=== PATIENT | female | born 1985 | race Caucasian/White ===

== ENCOUNTER 2017-10-08 09:44 | Emergency (ER) | payer OTHER ==
[~2017-10-08] VITALS: Ht 165.1 cm; Wt 113.0 kg
[~2017-10-08 09:44] MED LIST: DULO1CAP3 PO; HYDR-755; LYRI225C PO; PRED10; QUET1TAB7 PO; VENTAER
[2017-10-08 09:46] VITALS: BP 148/90; PULSE 108; RESP 17; TEMP 97.8; O2SAT 98
--- NOTE | 2017-10-08 10:24 | PD ---
HPI Chief Complaint: OD/ Ingestion Time Seen by Provider: 10:04 Travel History International Travel<30 days: No Contact w/Intl Traveler<30days: No Traveled to known affect area: No History of Present Illness HPI 32-year-old female presents to emergency department concerned about withdrawal from alcohol, IV heroin use and cocaine. Patient states that she last used IV heroin yesterday and has been feeling "horrible" ever since. Patient is from [place], [place] and is here in [facility] to try to get clean. Patient says she has had hot and cold flashes, pain all over her body. Patient denies hallucinations, suicidal or homicidal ideations. States that she has a history of interstitial lung disease and usually takes oral and inhaled steroids. Patient also has a history of neuropathy and has taken Lyrica for the last 2 years. Patient has been off her medications for approximately 10-15 days. Patient has had periods of being clean and states she would like help to stay clean. She denies any other medical issues or chronic medication use. [facility] Past Medical History ?: Not LMP: 09/14/17 Social History Tobacco Use: Yes Allergies-Medications (Allergen,Severity, Reaction): Coded Allergies: No Known Allergies (Unverified , 10/08/17) Review of Systems Except as stated in HPI: all other systems reviewed are Neg Physical Exam Narrative GENERAL: Well-developed well-nourished, anxious SKIN: Focused skin assessment warm/dry. HEAD: Atraumatic. Normocephalic. EYES: Pupils equal and round. No scleral icterus. No injection or drainage. ENT: No nasal bleeding or discharge. Mucous membranes pink and moist. NECK: Trachea midline. No JVD. No lymphadenopathy CARDIOVASCULAR: Regular rate and rhythm. No murmur appreciated. RESPIRATORY: Diffuse wheezing, no obvious shortness of breath or accessory muscle use GASTROINTESTINAL: Abdomen soft, non-tender, nondistended. Hepatic and splenic margins not palpable. MUSCULOSKELETAL: No obvious deformities. No clubbing. No cyanosis. No edema. NEUROLOGICAL: Awake and alert. No obvious cranial nerve deficits. Motor grossly within normal limits. Normal speech. PSYCHIATRIC: Appropriate mood and affect; insight and judgment normal. Anxious Data Data Last Documented VS Vital Signs Date Time Temp Pulse Resp B/P (MAP) Pulse Ox O2 Delivery O2 Flow Rate FiO2 10/08/17 15:26 77 18 142/75 (97) 100 10/08/17 12:45 Room Air 10/08/17 09:46 97.8 Orders Orders Chest, Single Ap (10/08/17 ) Complete Blood Count With Diff (10/08/17 10:18) Comprehensive Metabolic Panel (10/08/17 10:18) Urinalysis - C+S If Indicated (10/08/17 10:18) Psych Screen (10/08/17 10:18) Drug Screen, Random Urine (10/08/17 10:18) Midazolam Inj (Versed Inj) (10/08/17 10:30) Sodium Chlor 0.9% 1000 Ml Inj (Ns 1000 M (10/08/17 11:00) Albuterol-Ipratropium Neb (Duoneb Neb) (10/08/17 11:15) Prednisone (Deltasone) (10/08/17 11:15) Ibuprofen (Motrin) (10/08/17 12:45) Labs Laboratory Tests Test 10/08/17 10:20 10/08/17 10:35 White Blood Count 11.2 TH/MM3 Red Blood Count 5.48 MIL/MM3 Hemoglobin 16.9 GM/DL Hematocrit 49.3 % Mean Corpuscular Volume 90.1 FL Mean Corpuscular Hemoglobin 30.8 PG Mean Corpuscular Hemoglobin Concent 34.2 % Red Cell Distribution Width 16.2 % Platelet Count 238 TH/MM3 Mean Platelet Volume 8.6 FL Neutrophils (%) (Auto) 70.6 % Lymphocytes (%) (Auto) 21.6 % Monocytes (%) (Auto) 5.9 % Eosinophils (%) (Auto) 1.4 % Basophils (%) (Auto) 0.5 % Neutrophils # (Auto) 7.9 TH/MM3 Lymphocytes # (Auto) 2.4 TH/MM3 Monocytes # (Auto) 0.7 TH/MM3 Eosinophils # (Auto) 0.2 TH/MM3 Basophils # (Auto) 0.1 TH/MM3 CBC Comment DIFF FINAL Differential Comment Blood Urea Nitrogen 8 MG/DL Creatinine 0.61 MG/DL Random Glucose 108 MG/DL Total Protein 7.7 GM/DL Albumin 3.8 GM/DL Calcium Level 9.5 MG/DL Alkaline Phosphatase 123 U/L Aspartate Amino Transf (AST/SGOT) 6 U/L Alanine Aminotransferase (ALT/SGPT) 30 U/L Total Bilirubin 0.7 MG/DL Sodium Level 141 MEQ/L Potassium Level 4.0 MEQ/L Chloride Level 105 MEQ/L Carbon Dioxide Level 29.5 MEQ/L Anion Gap 7 MEQ/L Estimat Glomerular Filtration Rate 114 ML/MIN Urine Color YELLOW Urine Turbidity HAZY Urine pH 6.5 Urine Specific [place] 1.020 Urine Protein TRACE mg/dL Urine Glucose (UA) NEG mg/dL Urine Ketones NEG mg/dL Urine Occult Blood TRACE Urine Nitrite NEG Urine Bilirubin NEG Urine Urobilinogen 2.0 MG/DL Urine Leukocyte Esterase SMALL Urine RBC 6 /hpf Urine WBC 1 /hpf Urine Squamous Epithelial Cells 51 /hpf Urine Bacteria OCC /hpf Urine Hyaline Casts 2 /lpf Urine Mucus FEW /lpf Microscopic Urinalysis Comment CULT NOT INDICATED Urine Opiates Screen NEG Urine Barbiturates Screen NEG Urine Amphetamines Screen NEG Urine Benzodiazepines Screen NEG Urine Cocaine Screen POS Urine Cannabinoids Screen NEG MDM Medical Decision Making Medical Screen Exam Complete: Yes Emergency Medical Condition: Yes Differential Diagnosis polysubstance use, substance abuse, overdose, depression, anxiety Narrative Course 32-year-old female presents to emergency department concerned about withdrawal from alcohol, IV heroin use and cocaine. Patient states that she last used IV heroin yesterday and has been feeling "horrible" ever since. Patient is from [place], [place] and is here in [facility] to try to get clean. Patient says she has had hot and cold flashes, pain all over her body. Patient denies hallucinations, suicidal or homicidal ideations. States that she has a history of interstitial lung disease and usually takes oral and inhaled steroids. Patient also has a history of neuropathy and has taken Lyrica for the last 2 years. Patient has been off her medications for approximately 10-15 days. Patient has had periods of being clean and states she would like help to stay clean. Vital signs- slight tachycardia associated with anxiety with the patient. Physical exam- anxious appearing female, unkempt. Laboratory Tests Test 10/08/17 10:20 10/08/17 10:35 White Blood Count 11.2 TH/MM3 Red Blood Count 5.48 MIL/MM3 Hemoglobin 16.9 GM/DL Hematocrit 49.3 % Mean Corpuscular Volume 90.1 FL Mean Corpuscular Hemoglobin 30.8 PG Mean Corpuscular Hemoglobin Concent 34.2 % Red Cell Distribution Width 16.2 % Platelet Count 238 TH/MM3 Mean Platelet Volume 8.6 FL Neutrophils (%) (Auto) 70.6 % Lymphocytes (%) (Auto) 21.6 % Monocytes (%) (Auto) 5.9 % Eosinophils (%) (Auto) 1.4 % Basophils (%) (Auto) 0.5 % Neutrophils # (Auto) 7.9 TH/MM3 Lymphocytes # (Auto) 2.4 TH/MM3 Monocytes # (Auto) 0.7 TH/MM3 Eosinophils # (Auto) 0.2 TH/MM3 Basophils # (Auto) 0.1 TH/MM3 CBC Comment DIFF FINAL Differential Comment Blood Urea Nitrogen 8 MG/DL Creatinine 0.61 MG/DL Random Glucose 108 MG/DL Total Protein 7.7 GM/DL Albumin 3.8 GM/DL Calcium Level 9.5 MG/DL Alkaline Phosphatase 123 U/L Aspartate Amino Transf (AST/SGOT) 6 U/L Alanine Aminotransferase (ALT/SGPT) 30 U/L Total Bilirubin 0.7 MG/DL Sodium Level 141 MEQ/L Potassium Level 4.0 MEQ/L Chloride Level 105 MEQ/L Carbon Dioxide Level 29.5 MEQ/L Anion Gap 7 MEQ/L Estimat Glomerular Filtration Rate 114 ML/MIN Urine Color YELLOW Urine Turbidity HAZY Urine pH 6.5 Urine Specific [place] 1.020 Urine Protein TRACE mg/dL Urine Glucose (UA) NEG mg/dL Urine Ketones NEG mg/dL Urine Occult Blood TRACE Urine Nitrite NEG Urine Bilirubin NEG Urine Urobilinogen 2.0 MG/DL Urine Leukocyte Esterase SMALL Urine RBC 6 /hpf Urine WBC 1 /hpf Urine Squamous Epithelial Cells 51 /hpf Urine Bacteria OCC /hpf Urine Hyaline Casts 2 /lpf Urine Mucus FEW /lpf Microscopic Urinalysis Comment CULT NOT INDICATED Urine Opiates Screen NEG Urine Barbiturates Screen NEG Urine Amphetamines Screen NEG Urine Benzodiazepines Screen NEG Urine Cocaine Screen POS Urine Cannabinoids Screen NEG Last Impressions Chest X-Ray 10/08/17 0000 Signed Impressions: Service Date/Time: September 10:20 - CONCLUSION: 1. Minimal left basilar atelectasis. Lungs are otherwise clear. 2. Dextroscoliosis of the thoracolumbar spine. Dariel Gonzalez MD Labs stable. DuoNeb ordered for patient. States she still has existing breathing problems but I suspect this is chronic at this point since she has a history of ILD. Patient given prednisone, medazepam, and IV fluid challenge for tachycardia. I reassessed pt and pt agreed to a psych eval. She wants help and does feel anxious. Pt continues to have pain. Since she does want to get and remain clean, will avoid narcotic pain medication for now. Ibuprofen 800mg PO administered. Patient left AMA prior to psych evaluating her. Patient insisted on having more pain medication however, I avoided this secondary to her history. AMA: The risks of leaving against medical advice without further evaluation treatment were discussed with the patient. These risks include cardiac dysfunction, cardiac dysrhythmia, possible heart attack, possible stroke or . The patient indicated understanding of these risks and appeared to have the capacity to make this decision. Diagnosis Primary Impression: Anxiety Disposition: 07 AGAINST MEDICAL ADVICE Condition: Stable Quin Pino Oct 08, 2017 10:24
[2017-10-08] MEDS ORDERED: MIDAZOLAM HCL 2 MG/2 ML VIAL IV PUSH ONE (10:30)
[2017-10-08 10:45] LABS: AUTOMATED NEUTROPHIL # 7.9 TH/MM3 (1.8-7.7); BASOPHIL # 0.1 TH/MM3 (0-0.2); BASOPHIL % 0.5 % (0.0-2.0); EOSINOPHIL # 0.2 TH/MM3 (0-0.4); EOSINOPHIL % 1.4 % (0.0-4.0); HEMATOCRIT 49.3 % (35.0-46.0); HEMOGLOBIN 16.9 GM/DL (11.6-15.3); LYMPH % 21.6 % (9.0-44.0); LYMPHOCYTE # 2.4 TH/MM3 (1.0-4.8); MEAN CELL VOLUME 90.1 FL (80.0-100.0); MEAN CORPUSCULAR HEMOGLOBIN 30.8 PG (27.0-34.0); MEAN CORPUSCULAR HGB CONC 34.2 % (32.0-36.0); MEAN PLATELET VOLUME 8.6 FL (7.0-11.0); MONO % 5.9 % (0.0-8.0); MONOCYTE # 0.7 TH/MM3 (0-0.9); NEUT % 70.6 % (16.0-70.0); PLATELET COUNT 238 TH/MM3 (150-450); RED BLOOD COUNT 5.48 MIL/MM3 (4.00-5.30); RED CELL DISTRIBUTION WIDTH 16.2 % (11.6-17.2); WHITE BLOOD COUNT 11.2 TH/MM3 (4.0-11.0)
--- NOTE | 2017-10-08 10:50 | RADRPT ---
EXAM DATE/TIME: 10/08/2017 10:20 [place] COMPARISON: No previous studies available for comparison. INDICATIONS : Shortness of breath. MEDICAL HISTORY : None. SURGICAL HISTORY : None. ENCOUNTER: Initial ACUITY: 2 days PAIN SCORE: 0/10 LOCATION: Bilateral chest FINDINGS: A single view of the chest demonstrates the lungs to be symmetrically aerated without evidence of mas s, infiltrate or effusion. Minimal atelectatic changes above the left hemidiaphragm. The cardiomedia stinal contours are unremarkable. Osseous structures are intact with a dextroscoliosis of the thorac olumbar spine. CONCLUSION: 1. Minimal left basilar atelectasis. Lungs are otherwise clear. 2. Dextroscoliosis of the thoracolumbar spine. Dariel Gonzalez MD on October 08, 2017 at 10:47 Board Certified Radiologist. This report was verified electronically.
[2017-10-08 10:59] LABS: ALBUMIN 3.8 GM/DL (3.4-5.0); AST (GOT) 6 U/L (15-37); BICARBONATE 29.5 MEQ/L (21.0-32.0); BLOOD UREA NITROGEN 8 MG/DL (7-18); CALCIUM 9.5 MG/DL (8.5-10.1); CHLORIDE 105 MEQ/L (98-107); CREATININE 0.61 MG/DL (0.50-1.00); GLOMERULAR FILTRATION RATE 114 ML/MIN (>89); GLUCOSE,RANDOM 108 MG/DL (74-106); SODIUM (NA) 141 MEQ/L (136-145)
[2017-10-08] MEDS ORDERED: SODIUM CHLOR 0.9% 1000 ML INJ 1,000 ML IV ONE (11:00)
[2017-10-08 11:02] LABS: BACTERIA, URINE OCC /hpf; BILIRUBIN, URINE NEG (NEG); BLOOD, URINE TRACE (NEG); GLUCOSE,URINE NEG (NEG); HYALINE CAST, URINE 2 /lpf (RARE); KETONE, URINE NEG (NEG); MUCUS URINE FEW /lpf (OCC); NITRITE,URINE NEG (NEG); PH, URINE 6.5 (5.0-8.5); SQUAMOUS EPITHELIAL CELL URINE 51 /hpf (0-5); URINE COLOR YELLOW (YELLW/STRAW); URINE LEUKOCYTE ESTERASE SMALL (NEG)
[2017-10-08 11:02] LABS: ALKALINE PHOSPHATASE 123 U/L (45-117); ALT (GPT) 30 U/L (10-53); TOTAL BILIRUBIN ADULT 0.7 MG/DL (0.2-1.0); TOTAL PROTEIN 7.7 GM/DL (6.4-8.2)
[2017-10-08] MEDS ORDERED: predniSONE 20 MG TAB PO ONE (11:15)
[2017-10-08] MEDS ORDERED: RESP: ALBUTEROL 2.5 MG/IPRATROPIUM 0.5 MG NEB (SCH) NEB ONE (11:15)
[2017-10-08 12:45] VITALS: BP 110/77; PULSE 89; RESP 16; O2SAT 99
[2017-10-08] MEDS ORDERED: IBUPROFEN 600 MG TAB PO ONE (12:45)
[2017-10-08 15:26] VITALS: BP 142/75
[2017-10-09] MEDS ORDERED: BUPR1SUB6 (01:28)
[2017-10-09] MEDS ORDERED: LORA-474 PO (12:02)
== END 2017-10-08 15:32 | disposition left against medical advice (07) ==
LOC: NEPD 09:44
DX: F41.9 Anxiety disorder, unspecified (principal); J84.9 Interstitial pulmonary disease, unspecified; R06.2 Wheezing; Z72.0 Tobacco use
CPT/HCPCS: 71010; 80053; 80307; 81001; 85025; 94664; 96361; 96374; 99285; J2250; J7030; J7512

== ENCOUNTER 2017-10-08 21:31 | Emergency (ER) | payer OTHER ==
[2017-10-08 21:32] VITALS: BP 130/101; PULSE 125; RESP 22; O2SAT 98
[2017-10-08 21:55] VITALS: BP 120/71; PULSE 115; RESP 20; TEMP 98.2; O2SAT 96
[2017-10-08] MEDS ORDERED: LORazepam 1 MG TAB PO ONE (22:15)
[2017-10-08] MEDS ORDERED: DEXAMETHASONE SOD PHOS 4 MG/ML VIAL IM ONE (22:15)
[2017-10-08] MEDS ORDERED: FLUMAZENIL 0.5 MG/5 ML VIAL IV PUSH PRN (22:15)
[2017-10-08] MEDS ORDERED: LORazepam 2 MG TAB PO PRN (22:15)
--- NOTE | 2017-10-08 22:50 | PD ---
HPI Chief Complaint: Psychiatric Symptoms Time Seen by Provider: 22:46 Travel History International Travel<30 days: No Contact w/Intl Traveler<30days: No Traveled to known affect area: No History of Present Illness HPI 32-year-old female presents to the ED for psychiatric evaluation. Patient was seen in the ED earlier today and discharged. Per EMS report she called EMS from the hospital parking lot. Patient states that she is withdrawing from alcohol and feels "shaky." She states that she is suicidal and is going to "take all the Seroquel." She denies psychiatric history, previous history of suicide attempt or psychiatric hospitalization. She complains of shortness of breath and nonproductive cough. She is a current cigarette smoker. She denies risk of . PFSH Past Medical History Depression: Yes Medical other: Yes (chronic alcoholic) Respiratory: Yes (interstitial lung disease) ?: Not LMP: 09/14/17 Past Surgical History Cholecystectomy: Yes (2007) Social History Alcohol Use: Yes Tobacco Use: Yes (1 PPD) Substance Use: Yes (hx of using "everything-like crack, meth etc") Allergies-Medications (Allergen,Severity, Reaction): Coded Allergies: No Known Allergies (Unverified , 10/08/17) Review of Systems Except as stated in HPI: all other systems reviewed are Neg Physical Exam Narrative GENERAL: Well-nourished, obese white female in no acute distress. SKIN: Focused skin assessment warm/dry. HEAD: Normocephalic. EYES: No scleral icterus. No injection or drainage. NECK: Supple, trachea midline. No JVD or lymphadenopathy. CARDIOVASCULAR: Regular rate and rhythm without murmurs, gallops, or rubs. RESPIRATORY: Breath sounds coarse bilaterally.. No accessory muscle use. GASTROINTESTINAL: Abdomen soft, non-tender, nondistended. Active bowel sounds. MUSCULOSKELETAL: No cyanosis, or edema. Noted to walk with a normal gait. Extremities spontaneously. BACK: Nontender without obvious deformity. No CVA tenderness. Data Data Last Documented VS Vital Signs Date Time Temp Pulse Resp B/P (MAP) Pulse Ox O2 Delivery O2 Flow Rate FiO2 10/08/17 21:55 98.2 115 20 120/71 (87) 96 Room Air Orders Orders Urinalysis - C+S If Indicated (10/08/17 22:12) Psych Screen (10/08/17 22:12) Salicylates (Aspirin) (10/08/17 22:12) Tylenol (Acetaminophen) (10/08/17 22:12) Alcohol Withdrawal Asmt-Ciwa ONCE (10/08/17 22:12) Flumazenil Inj (Romazicon Inj) (10/08/17 22:15) Lorazepam (Ativan) (10/08/17 22:15) Lorazepam (Ativan) (10/08/17 22:15) Albuterol Neb (Albuterol Neb) (10/08/17 22:15) Dexamethasone Inj (Decadron Inj) (10/08/17 22:15) Ed Urine Pregnancytest Poc (10/08/17 22:12) Lorazepam (Ativan) (10/08/17 22:15) MDM Medical Decision Making Medical Screen Exam Complete: Yes Emergency Medical Condition: Yes Differential Diagnosis Malingering versus suicidal ideation versus COPD versus pneumonia versus other Narrative Course 32-year-old female presents to the ED for psychiatric evaluation. Patient was seen in the ED earlier today and discharged. Per EMS report she called EMS from the hospital parking lot. Patient states that she is withdrawing from alcohol and feels "shaky." She states that she is suicidal and is going to "take all the Seroquel." She denies psychiatric history, previous history of suicide attempt or psychiatric hospitalization. She complains of shortness of breath and nonproductive cough. She is a current cigarette smoker. She denies risk of . Vitals reviewed. Patient is tachycardic on presentation. Physical exam reveals an obese white female in no acute distress. Her lung sounds are coarse bilaterally but the remaining exam is unremarkable. Patient was administered IM steroids and DuoNeb 3. I reviewed the patient's lab work and chest x-ray from earlier today. Tox screen was positive for cocaine, otherwise unremarkable. Given her threats of overdosing on medication we'll check acetaminophen and salicylate levels. She was administered 1 mg of Ativan by mouth and placed on CIWA protocol. Patient is medically cleared for psychiatric evaluation. Diagnosis Primary Impression: Medical clearance for psychiatric admission Shannon Alcantar Oct 08, 2017 22:50
[2017-10-08] MEDS: RESP: ALBUTEROL 2.5 MG/3 ML NEB (SCH) INH ×2 (23:10→23:11)
[2017-10-08 23:15] VITALS: O2SAT 96
[2017-10-09 01:05] VITALS: BP 114/62; PULSE 92; RESP 20; O2SAT 96
[2017-10-09 01:18] LABS: BILIRUBIN, URINE NEG (NEG); BLOOD, URINE NEG (NEG); GLUCOSE,URINE NEG (NEG); KETONE, URINE NEG (NEG); MUCUS URINE FEW /lpf (OCC); NITRITE,URINE NEG (NEG); SQUAMOUS EPITHELIAL CELL URINE 2 /hpf (0-5); URINE COLOR YELLOW (YELLW/STRAW); URINE LEUKOCYTE ESTERASE NEG (NEG)
[2017-10-09] MEDS ORDERED: BUPR1SUB6 (01:28)
[2017-10-09 01:34] LABS: ACETAMINOPHEN LESS THAN 2.0 MCG/ML (10.0-30.0)
[2017-10-09 01:54] VITALS: BP 148/84; PULSE 104; RESP 18; TEMP 97.6; O2SAT 99
[2017-10-09] MEDS: LORazepam 1 MG TAB PO PRN ×2 (06:11→09:22)
[2017-10-09 08:59] VITALS: BP 134/89; PULSE 114; RESP 18; TEMP 98.5; O2SAT 97
[2017-10-09 11:07] VITALS: BP 186/86; PULSE 110
[2017-10-09] MEDS ORDERED: LORA-474 PO (12:02)
--- NOTE | 2017-10-09 12:09 | PD ---
History of Present Illness Chief Complaint: Psychiatric Symptoms Time Seen by Provider: 12:00 Travel History International Travel<30 Days: No Contact w/Intl Traveler<30days: No Known affected area: No Legal Status Legal Status: Voluntary History of Present Illness: 32-year-old female with history of substance abuse and alcoholism. Patient is verbally andrei for safety and denies any suicidal or homicidal ideation, plan or intent. Her cognition is intact and she has no psychotic symptoms. She is stating she was behaving in a suicidal manner earlier because she is afraid of going throughout all withdrawal. She is experiencing stomach cramps at the present time but wants to leave with a prescription for Ativan. She has taken Ativan previously and states that it helps. She is on the [facility] wait list but she does not wish to go there. She has a boyfriend waiting for her here and she would like to leave with him. As she is not interested in further treatment at [facility], this physician feels it is more appropriate to provide a prescription for Ativan. PFSH Past Medical History Depression: Yes Medical other: Yes (chronic alcoholic) Respiratory: Yes (interstitial lung disease) ?: Not LMP: 09/14/17 Past Surgical History Cholecystectomy: Yes (2007) Psychiatric History Psychiatric History Hx Psychiatric Treatment: Patient from [place]. She reports treatment for substance abuse. History of Inpatient Treatment: Yes Guns or firearms in home: No Social History Hx Alcohol Use: Yes Hx Tobacco Use: Yes (1 PPD) Hx Substance Use: Yes (hx of using "everything-like crack, meth etc") Substance Use Type: Alcohol, Heroin Hx of Substance Use Treatment: Yes Allergies-Medications (Allergen,Severity, Reaction): Coded Allergies: No Known Allergies (Unverified , 10/08/17) Reported Meds & Prescriptions Reported Meds & Active Scripts Active Ativan (Lorazepam) 1 Mg Tab 1 Mg PO Q6H PRN Reported Ventolin Hfa 18 GM Inh (Albuterol Sulfate) 90 Mcg/Act Aer Lyrica (Pregabalin) 225 Mg Cap 225 Mg PO TID Duloxetine DR (Duloxetine HCl) 60 Mg Capdr 60 Mg PO BID Hydroxyzine HCl 10 Mg Tab Prednisone 10 Mg Tab Buprenorphine-Naloxone 8-2 Mg Subl Quetiapine (Quetiapine Fumarate) 25 Mg Tab 25 Mg PO TID Review of Systems Gastrointestinal: COMPLAINS OF: Abdominal pain Psychiatric: COMPLAINS OF: Anxiety Except as stated in HPI: all other systems reviewed are Neg Mental Status Examination Appearance: Appropriate Consciousness: Alert Orientation: x4 Motor Activity: Normal gait Speech: Unremarkable Language: Adequate Fund of Knowledge: Adequate Attention and Concentration: Adequate Memory: Unremarkable Mood: Anxious Affect: Anxious Thought Process & Associations: Intact Thought Content: Appropriate Hallucination Type: None Delusion Type: None Suicidal Ideation: No Suicidal Plan: No Suicidal Intention: No Homicidal Ideation: No Homicidal Plan: No Homicidal Intention: No Insight: Adequate Judgment: Adequate MDM Medical Decision Making Medical Record Reviewed: Yes Assessment/Plan 32-year-old female with history of substance abuse. Apparently she was seen here yesterday and upon discharge, threatened suicide with a Seroquel overdose. At this time, the patient denies any suicidal or homicidal ideation, plan or intent. She is not intoxicated, has no psychotic symptoms and her cognition is intact. She is verbally andrei for safety and she is competent to do so. She would like to leave with her boyfriend and a prescription for Ativan, which is being written by this physician. She does not meet criteria for Dinero act or involuntary psychiatric hospitalization at this time. Orders Orders Urinalysis - C+S If Indicated (10/08/17 22:12) Psych Screen (10/08/17 22:12) Alcohol (Ethanol) (10/08/17 22:12) Salicylates (Aspirin) (10/08/17 22:12) Tylenol (Acetaminophen) (10/08/17 22:12) Alcohol Withdrawal Asmt-Ciwa ONCE (10/08/17 22:12) Flumazenil Inj (Romazicon Inj) (10/08/17 22:15) Lorazepam (Ativan) (10/08/17 22:15) Lorazepam (Ativan) (10/08/17 22:15) Albuterol Neb (Albuterol Neb) (10/08/17 22:15) Dexamethasone Inj (Decadron Inj) (10/08/17 22:15) Ed Urine Pregnancytest Poc (10/08/17 22:12) Lorazepam (Ativan) (10/08/17 22:15) Diet Regular Basic (10/09/17 Breakfast) Drug Screen, Random Urine (10/09/17 01:59) Alcohol (Ethanol) (10/09/17 00:55) Diet Regular Basic (10/09/17 Lunch) Results Vital Signs Date Time Temp Pulse Resp B/P (MAP) Pulse Ox O2 Delivery O2 Flow Rate FiO2 10/09/17 11:07 110 186/86 (119) 10/09/17 08:59 98.5 114 18 134/89 (104) 97 10/09/17 01:54 97.6 104 18 148/84 (105) 99 Room Air 10/09/17 01:05 92 20 114/62 (79) 96 Room Air 10/08/17 23:15 96 21 10/08/17 21:55 98.2 115 20 120/71 (87) 96 Room Air 10/08/17 21:32 125 22 130/101 (111) 98 Room Air Laboratory Tests Test 10/09/17 00:55 Urine Color YELLOW Urine Turbidity CLEAR Urine pH 6.0 Urine Specific [place] 1.007 Urine Protein NEG Urine Glucose (UA) NEG Urine Ketones NEG Urine Occult Blood NEG Urine Nitrite NEG Urine Bilirubin NEG Urine Urobilinogen LESS THAN 2.0 Urine Leukocyte Esterase NEG Urine RBC 1 Urine WBC 2 Urine Squamous Epithelial Cells 2 Urine Mucus FEW Microscopic Urinalysis Comment CULT NOT INDICATED Salicylates Level 2.1 Urine Opiates Screen NEG Acetaminophen Level LESS THAN 2.0 Urine Barbiturates Screen NEG Urine Amphetamines Screen NEG Urine Benzodiazepines Screen POS Urine Cocaine Screen POS Urine Cannabinoids Screen NEG Ethyl Alcohol Level LESS THAN 3 Diagnosis Primary Impression: Alcohol dependence Prescriptions Lorazepam (Ativan) 1 Mg Tab 1 MG PO Q6H Y for ANXIETY AND/OR AGITATION, #20 TAB 0 Refills Prov: Donald Rizo MD 10/09/17 Donald Rizo MD Oct 09, 2017 12:09
[2017-10-09] MEDS ORDERED: LORazepam 1 MG TAB PO ONE (12:30)
--- NOTE | 2017-10-09 12:43 | PD ---
Physical Exam Date Seen by Provider: Oct 09, 2017 Narrative 32 old female presents to emergency departments with suicidal ideations to overdose on seroquel. Patient was evaluated by the medical provider included to see psychiatry. At this time psych does not deem the patient appropriate for inpatient treatment. Patient will be discharged and follow up with outpatient therapy. Patient denies suicidal or homicidal ideations at this time. She agrees with plan and will comply. Data Data Last Documented VS Vital Signs Date Time Temp Pulse Resp B/P (MAP) Pulse Ox O2 Delivery O2 Flow Rate FiO2 10/09/17 13:19 10/09/17 12:50 97.0 98 18 100 Room Air 10/08/17 23:15 21 Orders Orders Urinalysis - C+S If Indicated (10/08/17 22:12) Psych Screen (10/08/17 22:12) Alcohol (Ethanol) (10/08/17 22:12) Salicylates (Aspirin) (10/08/17 22:12) Tylenol (Acetaminophen) (10/08/17 22:12) Alcohol Withdrawal Asmt-Ciwa ONCE (10/08/17 22:12) Flumazenil Inj (Romazicon Inj) (10/08/17 22:15) Lorazepam (Ativan) (10/08/17 22:15) Lorazepam (Ativan) (10/08/17 22:15) Albuterol Neb (Albuterol Neb) (10/08/17 22:15) Dexamethasone Inj (Decadron Inj) (10/08/17 22:15) Ed Urine Pregnancytest Poc (10/08/17 22:12) Lorazepam (Ativan) (10/08/17 22:15) Diet Regular Basic (10/09/17 Breakfast) Drug Screen, Random Urine (10/09/17 01:59) Alcohol (Ethanol) (10/09/17 00:55) Diet Regular Basic (10/09/17 Lunch) Lorazepam (Ativan) (10/09/17 12:30) Ed Discharge Order (10/09/17 12:43) Labs Laboratory Tests Test 10/09/17 00:55 Urine Color YELLOW Urine Turbidity CLEAR Urine pH 6.0 Urine Specific [place] 1.007 Urine Protein NEG mg/dL Urine Glucose (UA) NEG mg/dL Urine Ketones NEG mg/dL Urine Occult Blood NEG Urine Nitrite NEG Urine Bilirubin NEG Urine Urobilinogen LESS THAN 2.0 MG/DL Urine Leukocyte Esterase NEG Urine RBC 1 /hpf Urine WBC 2 /hpf Urine Squamous Epithelial Cells 2 /hpf Urine Mucus FEW /lpf Microscopic Urinalysis Comment CULT NOT INDICATED Salicylates Level 2.1 MG/DL Urine Opiates Screen NEG Acetaminophen Level LESS THAN 2.0 MCG/ML Urine Barbiturates Screen NEG Urine Amphetamines Screen NEG Urine Benzodiazepines Screen POS Urine Cocaine Screen POS Urine Cannabinoids Screen NEG Ethyl Alcohol Level LESS THAN 3 MG/DL MDM Supervised Visit with SUZETTE: Yes Diagnosis Primary Impression: Alcohol dependence Scripts Lorazepam (Ativan) 1 Mg Tab 1 MG PO Q6H Y for ANXIETY AND/OR AGITATION, #20 TAB 0 Refills Prov: Donald Rizo MD 10/09/17 Quin Pino Oct 09, 2017 12:43
[2017-10-09 12:50] VITALS: BP 136/87; PULSE 98; RESP 18; TEMP 97; O2SAT 100
== END 2017-10-09 15:07 | disposition home or self-care (01) ==
LOC: NEPE 21:31 → NEPJ 10-09 15:07
DX: F10.20 Alcohol dependence, uncomplicated (principal); F32.9 Major depressive disorder, single episode, unspecified; F17.210 Nicotine dependence, cigarettes, uncomplicated; F14.10 Cocaine abuse, uncomplicated
CPT/HCPCS: 80307; 81001; 84703; 94640; 94664; 96372; 99284; J1100; J7613